=== PATIENT | male | born 1970 | race Caucasian/White ===

== ENCOUNTER 2021-12-27 18:43 | Emergency (ER) | payer OTHER ==
[~2021-12-27] VITALS: Ht 160 cm; Wt 79.4 kg
[~2021-12-27 18:43] MED LIST: LEVAQUIN750 MG PO; TUSSIONEX PENNKI5 ML PO
[2021-12-27] MEDS ORDERED: LASIX20 MG PO (19:23)
[2021-12-27] MEDS ORDERED: KETO10TA2 PO (23:39)
[2021-12-27] MEDS ORDERED: NORFLEX100MG PO (23:39)
[2021-12-27] MEDS ORDERED: MEDROLPACK PO (23:39)
== END 2021-12-28 | disposition home or self-care (01) ==
LOC: ER 18:43
DX: M54.50 Low back pain, unspecified (principal)